=== PATIENT | female | born 1980 | race Caucasian/White ===

== ENCOUNTER 2017-02-27 01:34 | Emergency (ER) | payer MEDICAID, OTHER ==
[~2017-02-27] VITALS: Ht 170.2 cm; Wt 109.1 kg
[~2017-02-27 01:34] MED LIST: PREN-155 PO
[2017-02-27] MEDS ORDERED: AMOXICILLIN TRIHYDRATE 250 MG CAPSULE PO ONE (04:45)
[2017-02-27] MEDS ORDERED: ACETAMINOPHEN 500 MG TABLET PO ONE (04:45)
[2017-02-27 05:32] VITALS: BP 130/83
== END 2017-02-27 05:30 | disposition home or self-care (01) ==
LOC: EMS 01:44
DX: H65.91 Unspecified nonsuppurative otitis media, right ear (principal); J45.909 Unspecified asthma, uncomplicated
CPT/HCPCS: 99283

== ENCOUNTER 2019-05-14 14:09 | Emergency (ER) | payer OTHER ==
[~2019-05-14] VITALS: Ht 170.2 cm; Wt 109.1 kg
[2019-05-14] MEDS ORDERED: IBUP-14 PO (14:15)
[2019-05-14] MEDS ORDERED: CYCLOBENZAPRINE HCL 10 MG TABLET PO ONE (15:30)
[2019-05-14] MEDS ORDERED: KETOROLAC TROMETHAMINE 30 MG/ML VIAL IM ONE (16:15)
[2019-05-14 17:24] VITALS: BP 140/80
== END 2019-05-14 17:26 | disposition home or self-care (01) ==
LOC: EMS 14:14
DX: S89.92XA Unspecified injury of left lower leg, initial encounter (principal); S29.9XXA Unspecified injury of thorax, initial encounter; J45.909 Unspecified asthma, uncomplicated; Z90.49 Acquired absence of other specified parts of digestive tract; Z91.018 Allergy to other foods; Z79.899 Other long term (current) drug therapy; V89.2XXA Person injured in unspecified motor-vehicle accident, traffic, initial encounter; Y93.89 Activity, other specified; Y92.89 Other specified places as the place of occurrence of the external cause; Y99.8 Other external cause status
CPT/HCPCS: 72072; 73562; 96372; 99283; J1885